=== PATIENT | female | born 1965 | race Caucasian/White ===

== ENCOUNTER 2022-12-16 05:29 | Outpatient (CLI) | payer OTHER ==
[~2022-12-16] VITALS: Ht 160 cm; Wt 88.6 kg
[~2022-12-16 05:29] MED LIST: AMIT75TA2; ESCT10T; ESCT10T PO; NFR150C; ZLP10T
[2022-12-16] MEDS ORDERED: NAPR220C11 PO (12:44)
[2022-12-16] MEDS ORDERED: IBUP200C11 PO (12:44)
[2022-12-16] MEDS ORDERED: ACET325T38 PO (12:44)
[2022-12-16] MEDS ORDERED: TRZ50T PO (12:44)
[2022-12-16] MEDS ORDERED: SOFO1TAB PO (12:44)
== END 2022-12-16 13:04 | disposition home or self-care (01) ==
LOC: PREOP 05:29
PROVIDERS: ATTEND Obstetrics & Gynecology
DX: Z01.818 Encounter for other preprocedural examination (principal)

== ENCOUNTER 2022-12-23 06:37 | Day surgery (SDC) | payer OTHER ==
[~2022-12-23] VITALS: Ht 160 cm; Wt 88.6 kg
[2022-12-23] VITALS (11 sets, daily range): BP systolic 83–144; BP diastolic 50–98
[~2022-12-23 06:37] MED LIST changes: +ACET325T38 PO; +IBUP200C11 PO; +NAPR220C11 PO; +SOFO1TAB PO; +TRZ50T PO
[2022-12-23] MEDS ORDERED: LACTATED RINGERS 1,000 ML IV PRN (06:45)
[2022-12-23] MEDS ORDERED: MIDAZOLAM 2 MG/2 ML (VERSED) VIAL ONE (06:58)
[2022-12-23] MEDS ORDERED: fentaNYL INJ 100 MCG/2 ML AMP ONE (06:58)
[2022-12-23] MEDS ORDERED: LIDOCAINE PF 2% 5 ML (XYLOCAINE) VIAL ONE (06:58)
[2022-12-23] MEDS ORDERED: ONDANSETRON 4 MG/2 ML (SDV) Z0FRAN ONE (06:58)
[2022-12-23] MEDS ORDERED: proPOfol 200 MG/20 ML (DIPRIVAN) VIAL IV ONE (06:58)
[2022-12-23] MEDS ORDERED: BUPIVACAINE 0.25% 30 ML (SENSORCAINE) VIAL ONE (07:19)
--- NOTE | 2022-12-23 07:23 | Progress Note-Pre Operative ---
Pre-Operative Progress Note Date of Available H&P: Dec 23, 2022 Date H&P Reviewed: Dec 23, 2022 Time H&P Reviewed: 07:15 History & Physical: H&P Reviewed, Patient Examed, No changes noted Pre-Operative Diagnosis: AMANDAB LUISA CONTE DO Dec 23, 2022 07:23
[2022-12-23 07:26] LABS: BASOPHILS % (AUTO) 1 % (0-10); EOSINOPHILS # (AUTO) 0.1 10^3/uL (0.0-0.3); EOSINOPHILS % (AUTO) 3 % (0-10); HEMATOCRIT 33 % (35-52); HEMOGLOBIN 10.6 g/dL (11.5-16.0); LYMPHOCYTES # (AUTO) 1.3 10^3/uL (1.0-4.0); LYMPHOCYTES % (AUTO) 35 % (12-44); MEAN CORPUSCULAR HEMOGLOBIN 29 pg (25-34); MEAN CORPUSCULAR HGB CONC 32 g/dL (32-36); MEAN CORPUSCULAR VOLUME 90 fL (80-99); MEAN PLATELET VOLUME 10.1 fL (9.0-12.2); MONOCYTES # (AUTO) 0.3 10^3/uL (0.0-1.0); MONOCYTES % (AUTO) 8 % (0-12); NEUTROPHILS # (AUTO) 1.9 10^3/uL (1.8-7.8); NEUTROPHILS % (AUTO) 53 % (42-75); PLATELET COUNT 244 10^3/uL (130-400); WHITE BLOOD COUNT 3.6 10^3/uL (4.3-11.0)
[2022-12-23] MEDS ORDERED: HYDROcodone/APAP 5 MG/325 MG (LORTAB) TAB PO PRN (07:30)
[2022-12-23] MEDS ORDERED: KETOROLAC 30 MG/ML VIAL IVP ONE (07:30)
[2022-12-23] MEDS ORDERED: D5 LR IV SOLUTION 1,000 ML IV SCH (07:30)
[2022-12-23] MEDS ORDERED: ONDANSETRON 4 MG/2 ML (SDV) Z0FRAN IVP PRN ×2 (07:30→08:15)
--- NOTE | 2022-12-23 07:30 | Discharge Inst-Women's Service ---
Discharge Inst-Women's Serv Depart Medication/Instructions New, Converted or Re-Newed RX: Other (TAKE OTC NSAIDs PRN) Problems Reviewed?: Yes Consults/Follow Up Additional Follow Up: Yes Orders/Referrals Dr. Conte in 7-10 days Activity Activity: Activity as Tolerated Driving Instructions: You May Drive (no driving today) NO SMOKING: NO SMOKING Nothing Inside Vagina: No Douching, No [place], No Tampons Diet Discharge Diet: No Restrictions Symptoms to Report to : Bleeding Excessive, Pain Increased, Fever Over 101 Degrees F, Vaginal Bleeding Increase, Questions/Concerns For Any Problems or Questions: Contact Your Physician LUISA CONTE DO Dec 23, 2022 07:30
[2022-12-23] MEDS ORDERED: KETOROLAC 30 MG/ML VIAL ONE (07:58)
[2022-12-23] MEDS ORDERED: SEVOFLURANE (ULTANE) 15 ML INHAL SOLN ONE (08:05)
[2022-12-23] MEDS ORDERED: morphine INJ 10 MG/ML 1ML (SYR OR VIAL) IVP ONE (08:15)
[2022-12-23] MEDS ORDERED: PROMETHAZINE INJ 25 MG/ML (PHENERGAN) AMP IVP ONE (08:15)
[2022-12-23] MEDS ORDERED: HYDROmorphone 2 MG/ML VIAL (DILAUDID) IV ONE (08:15)
--- NOTE | 2022-12-23 13:14 | OPERATIVE REPORT ---
DATE OF SERVICE: 12/23/2022 PREOPERATIVE DIAGNOSIS: A 56-year-old female with postmenopausal bleeding. POSTOPERATIVE DIAGNOSIS: A 56-year-old female with postmenopausal bleeding. PROCEDURE: D and C. SURGEON: Luisa Conte DO ANESTHESIA: LMA general. ESTIMATED BLOOD LOSS: Minimal. URINE OUTPUT: 80 mL drained at start of the procedure. FLUIDS: 800 mL lactated Ringer solution. FINDINGS: Small to moderate amount of endometrial curetting tissue. Grossly normal-appearing external female genitalia. SPECIMEN SENT: Endometrial curettings. INDICATIONS FOR PROCEDURE: This 56-year-old female patient who had sought care in my office from the [facility] due to an issue of postmenopausal bleeding. This was a single episode, was not continuous. However, due to her age, endometrial sampling was indicated. I discussed with the patient EMB in the office versus proceeding with D and C. She opted to proceed with D and C. Risk of procedure discussed with the patient in detail and after all of her questions were answered, consent was obtained, the patient was taken to the operating room. OPERATIVE DESCRIPTION IN DETAIL Once in the operating room, anesthesia was administered and found to be adequate, was placed in dorsal lithotomy position, prepped and draped in normal sterile fashion. A timeout was performed. A weighted speculum inserted to the patient's vagina. Ring retractor was used to visualize the cervix, was grasped at 12 o'clock position using a long Allis clamp. I then performed a gentle uterine sound and the uterine cavity depth was found to be 7 cm. I then gently dilated the cervix using Hanks dilators to maximum dilatation of 1 cm, at which point I also performed a paracervical block at 3 and 9 o'clock positions on the cervix. Care was taken to aspirate for injecting 5 mL of 0.25% Marcaine injected at each site. I then performed a gentle curettage using a small endometrial curette and collected a small to moderate amount of endometrial tissue and sent as endometrial curettings after which there was no active bleeding noted from the cervix. All instruments were removed from the patient's vagina. The patient tolerated the procedure well and was taken to recovery in stable condition. Lap and sponge counts were correct at the end of the procedure. Instrument counts correct as well. Job ID: [id number] DocumentID: [id number] Dictated Date: 12/23/2022 08:41:00 Volunteer Manager Date: 12/23/2022 13:13:00 Dictated By: LUISA CONTE DO
== END 2022-12-23 10:05 | disposition home or self-care (01) ==
LOC: SDC 06:37
PROVIDERS: ATTEND Obstetrics & Gynecology
DX: N84.0 Polyp of corpus uteri (principal); D25.0 Submucous leiomyoma of uterus; E66.9 Obesity, unspecified; Z68.34 Body mass index [BMI] 34.0-34.9, adult
CPT/HCPCS: 36415; 84703; 85025; 86850; 86900; 86901; 87081; 88305